=== PATIENT | male | born 1960 | race Caucasian/White ===

== ENCOUNTER 2020-05-04 15:06 | Inpatient (IN) | payer MEDICARE, MEDICAID ==
[~2020-05-04] VITALS: Ht 175.3 cm; Wt 65.8 kg
[2020-05-04 15:48] LABS: BASOPHILS 0.1 % (0-2); EOSINOPHILS 0.1 % (0-7); HEMATOCRIT 31.9 % (42.0-54.0); HEMOGLOBIN 10.4 g/dL (13.5-17.5); IMMATURE GRANULOCYTES 0.3 % (0-5); LYMPHOCYTES 10.7 % (15-50); MCHC 32.6 g/dL (31.0-37.0); MCV 85.8 fL (80.0-100.0); MEAN PLATELET VOLUME 8.9 fL (7.4-10.4); MONOCYTES 7.9 % (2-11); NEUTROPHILS 80.9 % (40-80); PLATELET COUNT 444 10x3/uL (130-400); RBC 3.72 10x6/uL (4.20-6.10); RDW 16.8 % (11.5-14.5); WBC 13.8 10x3/uL (4.8-10.8)
[2020-05-04 16:01] VITALS: BMI 21.4
[2020-05-04 16:32] LABS: ALBUMIN 1.7 g/dL (3.4-5.0); ALKALINE PHOSPHATASE 87 U/L (30-120); ALT (SGPT) 20 U/L (10-68); BILIRUBIN - TOTAL 0.32 mg/dL (0.2-1.3); CALC OSMOLALITY 263 mosm/kg (275-300); CALCIUM 7.6 mg/dL (8.5-10.1); CARBON DIOXIDE 27.9 mmol/L (21.0-32.0); CHLORIDE - SERUM 98 mmol/L (98-107); GLUCOSE 93 mg/dL (74-106); PRO BNP 865 pg/mL (0-125); PROTEIN - SERUM 6.3 g/dL (6.4-8.2); SODIUM 131 mmol/L (136-145); UREA NITROGEN 14 mg/dL (7-18); eGFR NON AFRICAN AMERICAN 82 mL/min (90-120)
[2020-05-04 20:00] VITALS: BP 107/62
[2020-05-05] VITALS: BP 102/45
--- NOTE | 2020-05-05 02:21 | NUR ---
I have reviewed this patient and I concur with the Shift Assessment completed by the Licensed Practical Nurse today this shift.
[2020-05-05 04:00] VITALS: BP 95/50
[2020-05-05 06:34] LABS: BASOPHILS 0 % (0-2); EOSINOPHILS 0.1 % (0-7); HEMATOCRIT 32.6 % (42.0-54.0); HEMOGLOBIN 10.6 g/dL (13.5-17.5); IMMATURE GRANULOCYTES 0.5 % (0-5); MCH 27.8 pg (26.0-34.0); MCHC 32.5 g/dL (31.0-37.0); MCV 85.6 fL (80.0-100.0); MEAN PLATELET VOLUME 9.2 fL (7.4-10.4); MONOCYTES 3.5 % (2-11); NEUTROPHILS 86.9 % (40-80); PLATELET COUNT 485 10x3/uL (130-400); RBC 3.81 10x6/uL (4.20-6.10); WBC 12.3 10x3/uL (4.8-10.8)
[2020-05-05 06:54] LABS: ALBUMIN 1.7 g/dL (3.4-5.0); ALKALINE PHOSPHATASE 83 U/L (30-120); ALT (SGPT) 16 U/L (10-68); BILIRUBIN - TOTAL 0.47 mg/dL (0.2-1.3); CALC OSMOLALITY 268 mosm/kg (275-300); CALCIUM 8.1 mg/dL (8.5-10.1); CARBON DIOXIDE 26.2 mmol/L (21.0-32.0); CHLORIDE - SERUM 100 mmol/L (98-107); CREATININE - SERUM 0.9 mg/dL (0.6-1.3); GLUCOSE 125 mg/dL (74-106); POTASSIUM - SERUM 3.7 mmol/L (3.5-5.1); SODIUM 134 mmol/L (136-145); UREA NITROGEN 12 mg/dL (7-18); eGFR NON AFRICAN AMERICAN > 90 mL/min (90-120)
[2020-05-05 07:06] LABS: APTT 36.2 SECONDS (22.8-39.4); INR 1.15 (0.85-1.17); PROTIME 14.6 SECONDS (11.6-15.0)
[2020-05-05 08:50] VITALS: BP 96/50
[2020-05-05 12:44] VITALS: BP 116/84
[2020-05-05 14:27] VITALS: Ht 175.3 cm; Wt 65.8 kg
[2020-05-05 16:12] LABS: BASOPHILS 0 % (0-2); EOSINOPHILS 0 % (0-7); HEMATOCRIT 31.4 % (42.0-54.0); HEMOGLOBIN 10.3 g/dL (13.5-17.5); IMMATURE GRANULOCYTES 0.3 % (0-5); LYMPHOCYTES 6.6 % (15-50); MCH 27.8 pg (26.0-34.0); MCHC 32.8 g/dL (31.0-37.0); MCV 84.6 fL (80.0-100.0); MEAN PLATELET VOLUME 8.8 fL (7.4-10.4); NEUTROPHILS 89.1 % (40-80); PLATELET COUNT 427 10x3/uL (130-400); RBC 3.71 10x6/uL (4.20-6.10); RDW 16.7 % (11.5-14.5); WBC 11.5 10x3/uL (4.8-10.8)
[2020-05-05 16:22] LABS: APTT 33.8 SECONDS (22.8-39.4); INR 1.06 (0.85-1.17); PROTIME 13.8 SECONDS (11.6-15.0)
[2020-05-05 16:57] VITALS: BP 98/55
[2020-05-05 20:00] VITALS: BP 95/41
--- NOTE | 2020-05-05 20:00 | NUR ---
PT SITTING UP IN BED WITHOUT DISTRESS, AOX4. SIGNIFICANT OTHER AT BEDSIDE. IV RIGHT FA INFUSING NS @ [facility]. SCDS ON. O2 2L/NC. DENIES PAIN OR NEEDS. CL IN REACH, WILL CTM
[2020-05-06] VITALS (12 sets, daily range): BP systolic 80–115; BP diastolic 42–59
[2020-05-06 05:39] LABS: BASOPHILS 0 % (0-2); EOSINOPHILS 0 % (0-7); HEMATOCRIT 30.2 % (42.0-54.0); HEMOGLOBIN 9.8 g/dL (13.5-17.5); IMMATURE GRANULOCYTES 0.4 % (0-5); LYMPHOCYTES 6.7 % (15-50); MCH 27.7 pg (26.0-34.0); MCHC 32.5 g/dL (31.0-37.0); MCV 85.3 fL (80.0-100.0); MEAN PLATELET VOLUME 9.1 fL (7.4-10.4); MONOCYTES 4.1 % (2-11); NEUTROPHILS 88.8 % (40-80); RBC 3.54 10x6/uL (4.20-6.10); RDW 16.8 % (11.5-14.5)
[2020-05-06 05:47] LABS: PLATELET COUNT 517 10x3/uL (130-400); WBC 14.4 10x3/uL (4.8-10.8)
[2020-05-06 05:59] LABS: ALBUMIN 1.6 g/dL (3.4-5.0); ALKALINE PHOSPHATASE 86 U/L (30-120); BILIRUBIN - TOTAL 0.13 mg/dL (0.2-1.3); CALC OSMOLALITY 279 mosm/kg (275-300); CALCIUM 7.9 mg/dL (8.5-10.1); CARBON DIOXIDE 30.1 mmol/L (21.0-32.0); CHLORIDE - SERUM 102 mmol/L (98-107); GLUCOSE 159 mg/dL (74-106); POTASSIUM - SERUM 3.4 mmol/L (3.5-5.1); PROTEIN - SERUM 6.6 g/dL (6.4-8.2); SODIUM 138 mmol/L (136-145); UREA NITROGEN 15 mg/dL (7-18); eGFR NON AFRICAN AMERICAN 82 mL/min (90-120)
[2020-05-06 06:05] LABS: ALT (SGPT) 48 U/L (10-68)
--- NOTE | 2020-05-06 07:48 | NUR ---
PATIENT IN BED SLEEPING. GIRLFRIEND AT BEDSIDE. DENIES NEEDS. BED LOW POSITION, CALL LIGHT IN REACH. WILL CONTINUE TO MONITOR.
--- NOTE | 2020-05-06 11:53 | NUR ---
REPORT RECIEVED FROM RECOVERY ROOM NURSE.
--- NOTE | 2020-05-06 13:18 | MORECARE ---
CASE MANAGEMENT DISCHARGE SUMMARY PATIENT: JUNO HUERTA UNIT: [id number] ADM DATE: 05/04/20 AGE: 59 : 64 SEX: M ROOM/BED: D.2213 AUTHOR: CARLITOS HYATT PHYSICIAN: REFERRING PHYSICIAN: YESSENIA JURADO MD DATE OF SERVICE: 05/06/20 Discharge Plan Patient Name: JUNO HUERTA [facility] [facility] 1960 Planned Disposition: Home Anticipated Discharge Date: Discharge Date: Expected LOS: Initial Reviewer: [id number] Initial Review Date: 05/04/2020 Generated: 05/06/20 2:17 pm DCPIA - Discharge Planning Initial Assessment Updated by [email or web address]: Guerline Tripp on 05/06/20 1:17 pm * Is the patient Alert and Oriented? Yes * How many steps to enter\exit or inside your home? * PCP [facility] IN [place] * Pharmacy [facility] IN [place] * Preadmission Environment Home with Family * ADLs Independent * Equipment None * List name and contact numbers for known caregivers / representatives who currently or will assist patient after discharge: BE SIDDIQUI ( ) [phone] * Verbal permission to speak to the caregivers and representatives has been obtained from the patient. Yes * Community resources currently utilized None * Additional services required to return to the preadmission environment? Yes * Can the patient safely return to the preadmission environment? Yes * Has this patient been hospitalized within the prior 30 days at any hospital? No Patient Name: JUNO HUERTA Page [phone] at 1318 All edits/amendments must be made on the electronic document DICTATION DATE: 05/06/20 1318 GOLF COURSE KEEPER: JOHNNY 05/06/20 1318 RPT#: [id number] DC DATE: STATUS: ADM IN [facility] [address] [place] [address] END OF REPORT
--- NOTE | 2020-05-06 13:27 | MORECARE ---
CASE MANAGEMENT DISCHARGE SUMMARY PATIENT: JUNO HUERTA UNIT: [id number] ADM DATE: 05/04/20 AGE: 59 : 64 SEX: M ROOM/BED: D.2213 AUTHOR: EDMAR,DOC PHYSICIAN: REFERRING PHYSICIAN: YESSENIA JURADO MD DATE OF SERVICE: 05/06/20 Discharge Plan Patient Name: JUNO HUERTA Facility: [facility]:[place] : 1960 Planned Disposition: Home Anticipated Discharge Date: Discharge Date: Expected LOS: Initial Reviewer: [id number] Initial Review Date: 05/04/2020 Generated: 05/06/20 2:27 pm Comments DCP- Discharge Planning Updated by [email or web address]: Guerline Tripp on 05/06/20 12:[address] Patient Name: JUNO HUERTA Admission Status: Elective Accout number: [id number] Admission Date: 05-04-2020 : 1960 Admission Diagnosis: Attending: YESSENIA JURADO Current LOS: 2 Anticipated DC Date: Planned Disposition: Home Primary Insurance: [facility] MEDICARE SOLUTIONS Discharge Planning Comments: CM met with patient to complete initial dc planning assessment. CM educated patient on the CM role and verbal consent given by patient to complete assessment. Patient lives at home with his where he is independent with his care. At discharge patient plans to return home and feels this is a safe discharge. They live in a camper on their daughters property. CM discussed availability of home health, rehab services, and medical equipment. He denies needing or using and DME. He is currently on 4L o2 so he will need a walk test for home o2 need. CARLA for [facility] if he needed home O2. [facility] also served and explained. Patient denied known discharge needs at this time. CM will continue to follow and will assist as needed with dc plans/needs Anesthetist: Guerline Tripp DCPIA - Discharge Planning Initial Assessment Updated by [id number]: Guerline Tripp on 05/06/20 1:17 pm * Is the patient Alert and Oriented? Yes * How many steps to enter\exit or inside your home? * PCP [facility] IN [place] * Pharmacy [facility] IN [place] * Preadmission Environment Home with Family * ADLs Independent * Equipment None * List name and contact numbers for known caregivers / representatives who currently or will assist patient after discharge: BE SIDDIQUI ( ) [phone] * Verbal permission to speak to the caregivers and representatives has been obtained from the patient. Yes * Community resources currently utilized None * Additional services required to return to the preadmission environment? Yes * Can the patient safely return to the preadmission environment? Yes * Has this patient been hospitalized within the prior 30 days at any hospital? No Coverage Notice Reviewer: [id number] Tripp Notice Issued Date-Time: 05/06/2020 12:30 Notice Type: IM Discharge Notice Notice Delivered To: Patient Relationship to Patient: Alarm Technician Name: Delivery Method: HAND - Hand Delivered Kirstin Days: Prior Verbal Notification: Recipient Understood Notice: Yes Recipient Signature: Yes Med Rec Note Co-signed by Attending: Coverage Notice Comment: imm served and explained Reviewer: [id number] Tripp Notice Issued Date-Time: 05/06/2020 12:30 Notice Type: Patient Choice Letter Notice Delivered To: Patient Relationship to Patient: Alarm Technician Name: Delivery Method: HAND - Hand Delivered Kirstin Days: Prior Verbal Notification: Recipient Understood Notice: Yes Recipient Signature: Yes Med Rec Note Co-signed by Attending: Coverage Notice Comment: carla with patrick Fitzpatrick DP export: 05/06/20 12:18 p Patient Name: JUNO HUERTA Page [id number] at 1327 All edits/amendments must be made on the electronic document DICTATION DATE: 05/06/20 1327 CHLORINE CELL TENDER: JOHNNY 05/06/20 1327 RPT#: [id number] DC DATE: STATUS: ADM IN [facility] [address] [place] [address] END OF REPORT
[2020-05-07 04:00] VITALS: BP 105/58
[2020-05-07 05:17] LABS: BASOPHILS 0 % (0-2); EOSINOPHILS 0 % (0-7); HEMATOCRIT 29.4 % (42.0-54.0); HEMOGLOBIN 9.3 g/dL (13.5-17.5); IMMATURE GRANULOCYTES 0.4 % (0-5); MCH 27.5 pg (26.0-34.0); MCHC 31.6 g/dL (31.0-37.0); MEAN PLATELET VOLUME 9.1 fL (7.4-10.4); MONOCYTES 3.4 % (2-11); NEUTROPHILS 90.2 % (40-80); PLATELET COUNT 591 10x3/uL (130-400); RBC 3.38 10x6/uL (4.20-6.10); RDW 17.4 % (11.5-14.5)
[2020-05-07 05:29] LABS: WBC 18.6 10x3/uL (4.8-10.8)
[2020-05-07 05:40] LABS: % SATURATION 39 % (15-55); IRON 52 ug/dl (35-150); TOTAL IRON BIND CAPACITY 131 ug/dl (260-445); UNSAT IRON BIND CAPACITY 79 ug/dl (150-375)
[2020-05-07 06:29] LABS: ALBUMIN 1.6 g/dL (3.4-5.0); ALKALINE PHOSPHATASE 82 U/L (30-120); BILIRUBIN - TOTAL 0.18 mg/dL (0.2-1.3); CARBON DIOXIDE 26.8 mmol/L (21.0-32.0); CHLORIDE - SERUM 105 mmol/L (98-107); GLUCOSE 115 mg/dL (74-106); POTASSIUM - SERUM 3.8 mmol/L (3.5-5.1); PROTEIN - SERUM 6.2 g/dL (6.4-8.2); SODIUM 139 mmol/L (136-145); eGFR NON AFRICAN AMERICAN 82 mL/min (90-120)
[2020-05-07 06:30] LABS: ALT (SGPT) 85 U/L (10-68); CALC OSMOLALITY 280 mosm/kg (275-300); FERRITIN 1279 ng/mL (3-244); UREA NITROGEN 19 mg/dL (7-18)
[2020-05-07 08:51] VITALS: BP 91/43
[2020-05-07 12:36] VITALS: BP 94/56
--- NOTE | 2020-05-07 13:49 | NUR ---
Nutrition follow-up: Pt receiving a regular diet. NPO 05/06 for bronch and lung biopsy Labs reviewed Wt: 145# Will continue to monitor patients po intake and progress. RDN following.
[2020-05-07 16:56] VITALS: BP 105/50
[2020-05-07 17:09] LABS: ACID FAST SMEAR Negative (()); AFB SPECIMEN PROCESSING Concentration (())
--- NOTE | 2020-05-07 17:29 | NUR ---
PATIENT IN BED SLEEPING. FAMILY AT BEDSIDE. AROUSES TO VOICE. DENIES PAIN OR NEEDS. FREE FROM SIGNS OF DISTRESS. BED LOW POSITION. CALL LIGHT IN REACH. WILL CONTINUE TO MONITOR.
[2020-05-07 19:08] LABS: IMMUNOGLOBULIN E 70 IU/mL (6-495)
[2020-05-07 20:16] VITALS: BP 117/63
--- NOTE | 2020-05-07 20:30 | NUR ---
AWAKE,ALERT,NO COMPLAINTS VOICED. RESP EVEN AND UNALBORED. NO DISTRESS NOTED,02 @ 2L PER NC ON. IV TO RFA INTACT WITHOUT REDNESS OR EDEMA NOTED. CL IN REACH. AT BEDSIDE.
[2020-05-08 00:55] VITALS: BP 125/62
--- NOTE | 2020-05-08 04:02 | NUR ---
I have reviewed this patient and I concur with the Shift Assessment completed by the Licensed Practical Nurse today this shift.
[2020-05-08 05:07] VITALS: BP 95/62
[2020-05-08 06:44] LABS: BASOPHILS 0 % (0-2); EOSINOPHILS 0.1 % (0-7); HEMATOCRIT 28.6 % (42.0-54.0); HEMOGLOBIN 8.9 g/dL (13.5-17.5); MCH 27.2 pg (26.0-34.0); MCHC 31.1 g/dL (31.0-37.0); MCV 87.5 fL (80.0-100.0); MEAN PLATELET VOLUME 8.8 fL (7.4-10.4); MONOCYTES 6.8 % (2-11); NEUTROPHILS 78.1 % (40-80); PLATELET COUNT 583 10x3/uL (130-400); RBC 3.27 10x6/uL (4.20-6.10); RDW 17.6 % (11.5-14.5); WBC 16.1 10x3/uL (4.8-10.8)
[2020-05-08 07:10] LABS: ALBUMIN 1.7 g/dL (3.4-5.0); ALKALINE PHOSPHATASE 72 U/L (30-120); BILIRUBIN - TOTAL 0.13 mg/dL (0.2-1.3); CALC OSMOLALITY 281 mosm/kg (275-300); CALCIUM 7.8 mg/dL (8.5-10.1); CARBON DIOXIDE 25.9 mmol/L (21.0-32.0); CHLORIDE - SERUM 108 mmol/L (98-107); CREATININE - SERUM 0.8 mg/dL (0.6-1.3); GLUCOSE 83 mg/dL (74-106); POTASSIUM - SERUM 4.1 mmol/L (3.5-5.1); PROTEIN - SERUM 5.2 g/dL (6.4-8.2); SODIUM 141 mmol/L (136-145); UREA NITROGEN 17 mg/dL (7-18); eGFR NON AFRICAN AMERICAN > 90 mL/min (90-120)
[2020-05-08 07:12] LABS: ALT (SGPT) 63 U/L (10-68)
[2020-05-08 08:12] VITALS: BP 102/42
--- NOTE | 2020-05-08 08:24 | NUR ---
BE IN CHAIR. PT IN BED. NO CO OF PAIN. CL IN REACH. PT SL TO RIGHT FOREARM. WCTM
--- NOTE | 2020-05-08 10:44 | NUR ---
PT AND BE STATED THAT PT WOULD LIKE SOME FRESH AIR SO THEY WERE GOING TO GO OUT THE ER ENTRANCE. I STATED THAT THEY MIGHT NOT ALLOW HIM TO GO OUT BECAUSE OF THE IV POLE. I SHOWED THEM THE COURTYARD INSTEAD. MARY
[2020-05-08 12:16] VITALS: BP 141/63
--- NOTE | 2020-05-08 15:16 | NUR ---
BE IN CHAIR. PT EASILY AWAKENED. LAYING ON RIGHT SIDE. MEDS GIVEN PER EMAR. CL IN REACH. NO FURTHER NEEDS AT THIS TIME. WCTM
[2020-05-08 16:20] VITALS: BP 105/61
[2020-05-08] MEDS ORDERED: NICODERM CQ1 EAC3 TRANSDERM (16:40)
[2020-05-08] MEDS ORDERED: MUCINEX DM ER1 EAC1 PO (16:41)
[2020-05-08] MEDS ORDERED: PROTONIX40 MG PO (16:41)
[2020-05-08] MEDS ORDERED: IPRAT-ALBUT 0.5-3 ML UPD (16:41)
[2020-05-08] MEDS ORDERED: FLORAJEN3 CAPS460 MG PO (16:41)
[2020-05-08] MEDS ORDERED: TESSALON PERLE100 MG PO (16:41)
[2020-05-08] MEDS ORDERED: LEVOFLOXACIN500 MG PO (16:42)
[2020-05-08] MEDS ORDERED: CLINDAMYCIN HC300 MG PO (16:42)
[2020-05-08] MEDS ORDERED: PREDNISONE10 MG PO (16:42)
[2020-05-08] MEDS ORDERED: SYMBICORT 16010.2 GM INH (16:43)
--- NOTE | 2020-05-08 17:15 | NUR ---
CALLED AND LEFT A MESSAGE WITH CASE MANAGEMENT YORDAN AT 1645 NO ANSWER, PATIENT IS NEEDING NEBULIZER UPON DC. TEXTED [facility] AND WAS TOLD SHOULD BE HERE UNTIL 5. STILL NO ANSWER. WILL CONTINUE TO AWAIT ANSWER FROM GEN[facility] AND CONTINUE WITH [facility]
--- NOTE | 2020-05-08 18:03 | NUR ---
PT AMBULATED 250 FT WITH NO 0XYGEN. LOWEST SAT RECORDED AT 90% DURING WALK. PT VERBALIZED UNDERSTANDING THAT IT WOULD BE POSSIBLE TO GET THE NEBULIZER TOMORROW AND OXYGEN IF NEEDED. TONIGHT IT WOULD BE DIFFICULT. PT VERBALIZED HE WANTED TO GO HOME TONIGHT AND STILL GET THE NEBULIZER TOMORROW. I STATED THAT WOULD BE POSSIBLE.
--- NOTE | 2020-05-08 19:10 | NUR ---
DISCHARGE PAPERWORK GIVEN. PT VERBALIZED UNDERSTANDING. WHEELED OUT TO ER EXIT. IV THERAPY DC'ED FROM LEFT FOREARM.
--- NOTE | 2020-05-09 09:17 | MORECARE ---
CASE MANAGEMENT DISCHARGE SUMMARY PATIENT: JUNO HUERTA UNIT: [id number] ADM DATE: 05/04/20 AGE: 59 : 64 SEX: M ROOM/BED: D.2213 AUTHOR: EDMARDOC PHYSICIAN: REFERRING PHYSICIAN: YESSENIA JURADO MD DATE OF SERVICE: 05/09/20 Discharge Plan Patient Name: JUNO HUERTA Facility: [facility]:[place] : 1960 Planned Disposition: Home Anticipated Discharge Date: Discharge Date: 05/08/2020 Expected LOS: Initial Reviewer: [email or web address] Initial Review Date: 05/04/2020 Generated: 05/09/20 10:17 am DCP- Discharge Planning Updated by [email or web address]: Guerline Tripp on 05/06/20 12:[address] Patient Name: JUNO HUERTA Admission Status: Elective Accout number: [id number] Admission Date: 05-04-2020 : 1960 Admission Diagnosis: Attending: YESSENIA JURADO Current LOS: 2 Anticipated DC Date: Planned Disposition: Home Primary Insurance: [facility] MEDICARE SOLUTIONS Discharge Planning Comments: CM met with patient to complete initial dc planning assessment. CM educated patient on the CM role and verbal consent given by patient to complete assessment. Patient lives at home with his where he is independent with his care. At discharge patient plans to return home and feels this is a safe discharge. They live in a camper on their daughters property. CM discussed availability of home health, rehab services, and medical equipment. He denies needing or using and DME. He is currently on 4L o2 so he will need a walk test for home o2 need. CARLA for [facility] if he needed home O2. [facility] also served and explained. Patient denied known discharge needs at this time. CM will continue to follow and will assist as needed with dc plans/needs Plastic Panel Installer: Guerline Tripp DCPIA - Discharge Planning Initial Assessment Updated by [email or web address]: Guerline Tripp on 05/06/20 1:17 pm * Is the patient Alert and Oriented? Yes * How many steps to enter\exit or inside your home? * PCP [facility] IN [place] * Pharmacy [facility] IN [place] * Preadmission Environment Home with Family * ADLs Independent * Equipment None * List name and contact numbers for known caregivers / representatives who currently or will assist patient after discharge: BE SIDDIQUI ( ) [phone] * Verbal permission to speak to the caregivers and representatives has been obtained from the patient. Yes * Community resources currently utilized None * Additional services required to return to the preadmission environment? Yes * Can the patient safely return to the preadmission environment? Yes * Has this patient been hospitalized within the prior 30 days at any hospital? No External Providers External Provider: Chaya Next Contact Date: Service Request Date: Service Type: Resolution: Reviewer: Comments: Coverage Notice Reviewer: [id number] Tripp Notice Issued Date-Time: 05/06/2020 12:30 Notice Type: IM Discharge Notice Notice Delivered To: Patient Relationship to Patient: Hose Builder Name: Delivery Method: HAND - Hand Delivered Kirstin Days: Prior Verbal Notification: Recipient Understood Notice: Yes Recipient Signature: Yes Med Rec Note Co-signed by Attending: Coverage Notice Comment: imm served and explained Reviewer: [id number] Tripp Notice Issued Date-Time: 05/06/2020 12:30 Notice Type: Patient Choice Letter Notice Delivered To: Patient Relationship to Patient: Hose Builder Name: Delivery Method: HAND - Hand Delivered Kirstin Days: Prior Verbal Notification: Recipient Understood Notice: Yes Recipient Signature: Yes Med Rec Note Co-signed by Attending: Coverage Notice Comment: carla with patrick Fitzpatrick DP export: 05/06/20 12:27 p Patient Name: JUNO HUERTA Page [phone] at 0917 All edits/amendments must be made on the electronic document DICTATION DATE: 05/09/20916 INTERNAL COMMUNICATIONS WRITER: JOHNNY 05/09/20916 RPT#: [id number] DC DATE:05/08/20 STATUS: DIS IN [facility] [address] [place] [address] END OF REPORT
--- NOTE | 2020-05-09 09:42 | MORECARE ---
CASE MANAGEMENT DISCHARGE SUMMARY PATIENT: JUNO HUERTA UNIT: [id number] ADM DATE: 05/04/20 AGE: 59 : 64 SEX: M ROOM/BED: D.2213 AUTHOR: CARLITOS HYATT PHYSICIAN: REFERRING PHYSICIAN: YESSENIA JURADO MD DATE OF SERVICE: 05/09/20 Discharge Plan Patient Name: JUNO HUERTA Facility: [facility]:[place] : 1960 Planned Disposition: Home Anticipated Discharge Date: Discharge Date: 05/08/2020 Expected LOS: Initial Reviewer: [email or web address] Initial Review Date: 05/04/2020 Generated: 05/09/20 10:41 am Comments DCP- Discharge Planning Updated by [email or web address]: Marianne Carter on 05/09/20 8:[address] Patient Name: JUNO HUERTA Encounter No: [id number] : 1960 Primary Insurance: [facility] MEDICARE SOLUTIONS Anticipated DC Date: Planned Disposition: Home External Planned Provider: : DCP follow-up note: CM was asked by Dolly SHEN to set up home and portable oxygen. The pt was dc after CM hours. CM called pt Ruthie at [phone] about oxygen and nebulizers. Ruthie states she is in agreement to have [facility] service DME needs. CM called Sunny at [phone] for referral and faxed clinicals. Pt physical address is [address] [place], [place] [address] in [facility]. Ruthie states she was not able to get her husbands medications filled. She states the pharmacy told her it was too soon. [facility] called [facility] on [address] and spoke to Kris who states the medication was called in to the pharmacy on [facility], and in [facility], GENET called Ruthie to relay the information. Ruthie states she will pick remover the medication today. Patient and family in agreement with discharge plan. No changes to plan. Case management will follow and assist as needed. Marianne Carter DCP- Discharge Planning Updated by [email or web address]: Guerline Tripp on 05/06/20 12:[address] Patient Name: JUNO HUERTA Admission Status: Elective Accout number: [id number] Admission Date: 05-04-2020 : 1960 Admission Diagnosis: Attending: YESSENIA JURADO Current LOS: 2 Anticipated DC Date: Planned Disposition: Home Primary Insurance: [facility] MEDICARE SOLUTIONS Discharge Planning Comments: CM met with patient to complete initial dc planning assessment. CM educated patient on the CM role and verbal consent given by patient to complete assessment. Patient lives at home with his where he is independent with his care. At discharge patient plans to return home and feels this is a safe discharge. They live in a camper on their daughters property. CM discussed availability of home health, rehab services, and medical equipment. He denies needing or using and DME. He is currently on 4L o2 so he will need a walk test for home o2 need. MERE for [facility] if he needed home O2. IMM also served and explained. Patient denied known discharge needs at this time. CM will continue to follow and will assist as needed with dc plans/needs Electromechanical Inspector: Guerline Tripp DCPIA - Discharge Planning Initial Assessment Updated by [id number]: Guerline Tripp on 05/06/20 1:17 pm * Is the patient Alert and Oriented? Yes * How many steps to enter\exit or inside your home? * PCP [facility] IN [place] * Pharmacy [facility] IN [place] * Preadmission Environment Home with Family * ADLs Independent * Equipment None * List name and contact numbers for known caregivers / representatives who currently or will assist patient after discharge: RUTHIE SIDDIQUI ( ) [phone] * Verbal permission to speak to the caregivers and representatives has been obtained from the patient. Yes * Community resources currently utilized None * Additional services required to return to the preadmission environment? Yes * Can the patient safely return to the preadmission environment? Yes * Has this patient been hospitalized within the prior 30 days at any hospital? No Coverage Notice Reviewer: [email or web address] Naina Tripp Notice Issued Date-Time: 05/06/2020 12:30 Notice Type: IM Discharge Notice Notice Delivered To: Patient Relationship to Patient: Antisqueak Worker Name: Delivery Method: HAND - Hand Delivered Kirstin Days: Prior Verbal Notification: Recipient Understood Notice: Yes Recipient Signature: Yes Med Rec Note Co-signed by Attending: Coverage Notice Comment: imm served and explained Reviewer: [id number] Naina Tripp Notice Issued Date-Time: 05/06/2020 12:30 Notice Type: Patient Choice Letter Notice Delivered To: Patient Relationship to Patient: Antisqueak Worker Name: Delivery Method: HAND - Hand Delivered Kirstin Days: Prior Verbal Notification: Recipient Understood Notice: Yes Recipient Signature: Yes Med Rec Note Co-signed by Attending: Coverage Notice Comment: mere with patrick Fitzpatrick DP export: 05/09/20 8:18 a Patient Name: JUNO HUERTA Page [phone] at 0942 All edits/amendments must be made on the electronic document DICTATION DATE: 05/09/20940 BEREAVEMENT PROGRAM COORDINATOR: JOHNNY 05/09/20940 RPT#: [id number] DC DATE:05/08/20 STATUS: DIS IN [facility] [address] [place] [address] END OF REPORT
--- NOTE | 2020-05-10 09:05 | MORECARE ---
CASE MANAGEMENT DISCHARGE SUMMARY PATIENT: JUNO HUERTA UNIT: [id number] ADM DATE: 05/04/20 AGE: 59 : 64 SEX: M ROOM/BED: D.2213 AUTHOR: CARLITOS HYATT PHYSICIAN: REFERRING PHYSICIAN: YESSENIA JURADO MD DATE OF SERVICE: 05/10/20 Discharge Plan Patient Name: JUNO HUERTA Facility: [facility]:[place] : 1960 Planned Disposition: Home Anticipated Discharge Date: Discharge Date: 05/08/2020 Expected LOS: Initial Reviewer: [email or web address] Initial Review Date: 05/04/2020 Generated: 05/10/20 10:05 am Comments DCP- Discharge Planning Updated by [email or web address]: Marianne Carter on 05/09/20 8:[address] Patient Name: JUNO HUERTA Encounter No: [id number] : 1960 Primary Insurance: [facility] MEDICARE SOLUTIONS Anticipated DC Date: Planned Disposition: Home External Planned Provider: : DCP follow-up note: GENET was asked by Dolly SHEN to set up home and portable oxygen. The pt was dc after CM hours. CM called pt Ruthie at [phone] about oxygen and nebulizers. Ruthie states she is in agreement to have [facility] service DME needs. CM called Sunny at [phone] for referral and faxed clinicals. Pt physical address is [address] [place], [place] [address] in [facility]. Ruthie states she was not able to get her husbands medications filled. She states the pharmacy told her it was too soon. [facility] called [facility] on [address] and spoke to Kris who states the medication was called in to the pharmacy on [facility], and in [facility], GENET called Ruthie to relay the information. Ruthie states she will black pickler the medication today. Patient and family in agreement with discharge plan. No changes to plan. Case management will follow and assist as needed. Marianne Carter DCP- Discharge Planning Updated by [email or web address]: Guerline Tripp on 05/06/20 12:[address] Patient Name: JUNO HUERTA Admission Status: Elective Accout number: [id number] Admission Date: 05-04-2020 : 1960 Admission Diagnosis: Attending: YESSENIA JURADO Current LOS: 2 Anticipated DC Date: Planned Disposition: Home Primary Insurance: [facility] MEDICARE SOLUTIONS Discharge Planning Comments: CM met with patient to complete initial dc planning assessment. CM educated patient on the CM role and verbal consent given by patient to complete assessment. Patient lives at home with his where he is independent with his care. At discharge patient plans to return home and feels this is a safe discharge. They live in a camper on their daughters property. CM discussed availability of home health, rehab services, and medical equipment. He denies needing or using and DME. He is currently on 4L o2 so he will need a walk test for home o2 need. MERE for [facility] if he needed home O2. IMM also served and explained. Patient denied known discharge needs at this time. CM will continue to follow and will assist as needed with dc plans/needs Sterile Proc Tech: Guerline Tripp DCPIA - Discharge Planning Initial Assessment Updated by [email or web address]: Guerline Tripp on 05/06/20 1:17 pm * Is the patient Alert and Oriented? Yes * How many steps to enter\exit or inside your home? * PCP [facility] IN [place] * Pharmacy [facility] IN [place] * Preadmission Environment Home with Family * ADLs Independent * Equipment None * List name and contact numbers for known caregivers / representatives who currently or will assist patient after discharge: RUTHIE SIDDIQUI ( ) [phone] * Verbal permission to speak to the caregivers and representatives has been obtained from the patient. Yes * Community resources currently utilized None * Additional services required to return to the preadmission environment? Yes * Can the patient safely return to the preadmission environment? Yes * Has this patient been hospitalized within the prior 30 days at any hospital? No Coverage Notice Reviewer: [id number] Naina Tripp Notice Issued Date-Time: 05/06/2020 12:30 Notice Type: IM Discharge Notice Notice Delivered To: Patient Relationship to Patient: Window Assembler Name: Delivery Method: HAND - Hand Delivered Kirstin Days: Prior Verbal Notification: Recipient Understood Notice: Yes Recipient Signature: Yes Med Rec Note Co-signed by Attending: Coverage Notice Comment: imm served and explained Reviewer: [id number] Naina Tripp Notice Issued Date-Time: 05/06/2020 12:30 Notice Type: Patient Choice Letter Notice Delivered To: Patient Relationship to Patient: Window Assembler Name: Delivery Method: HAND - Hand Delivered Kirstin Days: Prior Verbal Notification: Recipient Understood Notice: Yes Recipient Signature: Yes Med Rec Note Co-signed by Attending: Coverage Notice Comment: mere with patrick Fitzpatrick DP export: 05/09/20 8:42 a Patient Name: JUNO HUERTA Page [phone] at 0905 All edits/amendments must be made on the electronic document DICTATION DATE: 05/10/20904 RECORD PRESS SUPERVISOR: JOHNNY 05/10/20904 RPT#: [id number] DC DATE:05/08/20 STATUS: DIS IN [facility] [address] [place] [address] END OF REPORT
== END 2020-05-08 19:24 | disposition home or self-care (01) | DRG 180 ==
LOC: D.MS 15:06
PROVIDERS: Internal Medicine Pulmonary Disease; ADMIT Emergency Medicine; ATTEND Emergency Medicine
PROC: 0BB78ZX Excision of Left Main Bronchus, Via Natural or Artificial Opening Endoscopic, Diagnostic (ICD-10-PCS; 2020-05-06)
PROC: 0BB98ZX Excision of Lingula Bronchus, Via Natural or Artificial Opening Endoscopic, Diagnostic (ICD-10-PCS; principal; 2020-05-06 10:15)
DX: C34.12 Malignant neoplasm of upper lobe, left bronchus or lung (principal); J18.9 Pneumonia, unspecified organism; J96.01 Acute respiratory failure with hypoxia; F17.203 Nicotine dependence unspecified, with withdrawal; J44.1 Chronic obstructive pulmonary disease with (acute) exacerbation; E87.1 Hypo-osmolality and hyponatremia; R50.9 Fever, unspecified; K59.00 Constipation, unspecified; I25.10 Atherosclerotic heart disease of native coronary artery without angina pectoris; D64.9 Anemia, unspecified; E78.5 Hyperlipidemia, unspecified

== ENCOUNTER → 2020-05-28 10:12 | Outpatient (CLI) | payer MEDICARE, MEDICAID ==
[2020-05-05 14:27] VITALS: BMI 21.4
[~2020-05-28 10:12] MED LIST: CLINDAMYCIN HC300 MG PO; FLORAJEN3 CAPS460 MG PO; IPRAT-ALBUT 0.5-3 ML UPD; LEVOFLOXACIN500 MG PO; MUCINEX DM ER1 EAC1 PO; NICODERM CQ1 EAC3 TRANSDERM; PREDNISONE10 MG PO; PROTONIX40 MG PO; SYMBICORT 16010.2 GM INH; TESSALON PERLE100 MG PO
== END | disposition home or self-care (01) ==
LOC: D.MRI 10:00
PROVIDERS: ATTEND Internal Medicine Hematology & Oncology
DX: C34.12 Malignant neoplasm of upper lobe, left bronchus or lung (principal)

== ENCOUNTER 2020-06-03 07:21 | Day surgery (SDC) | payer MEDICARE, MEDICAID ==
[~2020-06-03] VITALS: Ht 175.3 cm; Wt 65.8 kg
--- NOTE | ~2020-06-03 | OP ---
PATIENT NAME: JUNO HUERTA MEDICAL RECORD: [id number] :64 LOCATION:D.OPS ADMISSION DATE: SURGEON: CHRISTOPHER BHAKTA MD DATE OF OPERATION: 06/03/2020 PREOPERATIVE DIAGNOSES: 1. Stage IV lung cancer. 2. Coronary artery disease. POSTOPERATIVE DIAGNOSES: 1. Stage IV lung cancer. 2. Coronary artery disease. PROCEDURE: 1. Left subclavian vein 8-[place]hut[place] PowerPort placement. 2. Fluoroscopic interpretation. SURGEON: Christopher Bhakta MD REPORT OF PROCEDURE: The patient's left chest was prepped and draped in sterile fashion. A needle was used to cannulate the left subclavian vein and a guidewire was advanced with ease. Fluoro was used to note that the wire was in good position in the venous system. A skin incision was made on the left superior lateral chest and a subcutaneous pouch was made over the pectoral fascia. The catheter was tunneled between this pouch and the wire exit site. The port was sutured to the pectoral fascia with interrupted 2-0 Prolenes times 2. The catheter was cut with a beveled tip at 20 cm. The dilator trocar device was placed over the wire and the wire and dilator were removed. The catheter tip was advanced through the trocar, which was then removed. The catheter tip was noted to be resting in good position at the right atrial superior vena caval junction. The catheter aspirated nonpulsatile dark blood and flushed easily with heparinized saline. The subcutaneous tissues were then reapproximated with interrupted 3-0 Vicryl and the skin was closed with running subcutaneous 5-0 Monocryl. COMPLICATIONS: None. CONDITION: Stable. ANESTHESIA: General endotracheal. BLOOD LOSS: Minimal. TRANSINT:[id number] Voice Confirmation ID: [id number] DOCUMENT ID: [id number] CHRISTOPHER BHAKTA MD CC: MIGUEL CHENG MD [id number] DICTATION DATE: 06/03/20 0948 CABINET WORKER: 06/03/20 1210 [facility] [address] [id number]
[2020-06-03 07:46] LABS: APTT 32.7 SECONDS (22.8-39.4); INR 1.04 (0.85-1.17); PROTIME 13.5 SECONDS (11.6-15.0)
[2020-06-03 07:48] LABS: BASOPHILS 0.4 % (0-2); HEMOGLOBIN 11.1 g/dL (13.5-17.5); IMMATURE GRANULOCYTES 0.3 % (0-5); LYMPHOCYTES 27.1 % (15-50); MCH 27.9 pg (26.0-34.0); MCHC 31.7 g/dL (31.0-37.0); MCV 87.9 fL (80.0-100.0); MEAN PLATELET VOLUME 8.8 fL (7.4-10.4); MONOCYTES 8.4 % (2-11); NEUTROPHILS 50.8 % (40-80); RBC 3.98 10x6/uL (4.20-6.10); RDW 17.7 % (11.5-14.5); WBC 12.3 10x3/uL (4.8-10.8)
[2020-06-03 07:49] LABS: PLATELET COUNT 346 10x3/uL (130-400)
[2020-06-03 08:00] LABS: CALC OSMOLALITY 278 mosm/kg (275-300); CALCIUM 9.6 mg/dL (8.5-10.1); CARBON DIOXIDE 29.5 mmol/L (21.0-32.0); CHLORIDE - SERUM 99 mmol/L (98-107); CREATININE - SERUM 0.9 mg/dL (0.6-1.3); GLUCOSE 113 mg/dL (74-106); POTASSIUM - SERUM 3.3 mmol/L (3.5-5.1); SODIUM 137 mmol/L (136-145); UREA NITROGEN 23 mg/dL (7-18); eGFR NON AFRICAN AMERICAN > 90 mL/min (90-120)
[2020-06-03] MEDS ORDERED: ZOFRAN4 MG PO (08:15)
[2020-06-03] MEDS ORDERED: TYLENOL W/CODEI1 TAB PO (08:15)
[2020-06-03 08:16] VITALS: BP 108/74; Ht 175.3 cm; Wt 65.8 kg
[2020-06-03] MEDS ORDERED: HYDROCODON-ACE1 EAC7 PO (09:46)
--- NOTE | 2020-06-03 12:09 | NUR ---
1125 IV D/C'D WITH CANNULA INTACT, PRESSURE HELD AND DRSG PLACED. DISCHARGE INSTRUCIONS GIVEN AND PT VERBALIZED AN UNDERSTANDING. DRSG CDI AND OPERATIVE SITE WITHOUT COMPLICATIONS. DISCHARGED HOME IN STABLE CONDITION AND WITHOUT C/O
== END 2020-06-03 11:30 | disposition home or self-care (01) ==
LOC: D.OPS 07:21
PROVIDERS: Anesthesiology; ATTEND Surgery
DX: C34.12 Malignant neoplasm of upper lobe, left bronchus or lung (principal); I25.10 Atherosclerotic heart disease of native coronary artery without angina pectoris

== ENCOUNTER → 2020-06-07 10:34 | Outpatient (CLI) | payer MEDICARE, MEDICAID ==
[2020-06-03 08:16] VITALS: BMI 21.4
--- NOTE | ~2020-06-07 | HEMODYNAMI ---
PATIENT:JUNO HUERTA MEDICAL RECORD: [id number] : 64 [id number] ADMISSION DATE: 06/07/20 Generatedon:06/07/202011:20 Patient name: JUNO HUERTA Patient #: [id number] SSN: : 1960 Date of study: 06/07/2020 Page: Of Hemodynamic Procedure Report Patient Data Patient Demographics Procedure consent was obtained First Name: JUNO Gender: Male Last Name: BRADLEY : 1960 Middle Initial: W Age: 59 year(s) Patient #: [id number] Race: Unknown Additional ID: [id number] Contact details Address: [place] [address] State: [place] City: [place] Zip code: [address] Admission Admission Data Admission Date: 06/07/2020 Admission Time: 10:34 Procedure Procedure Types Cath Procedure Peripheral Cath Diagnostic Procedure Miscellaneous Cathetergram Procedure Description Procedure Date Procedure Date: 06/07/2020 Procedure Start Time: 11:13 Procedure Staff Name Function Swetha Mason MD Performing Physician Salvador JUSTIN Scrub Procedure Data Cath Procedure Fluoroscopy Diagnostic fluoroscopy Total fluoroscopy Time: 0.1 time: 0.1 min min Diagnostic fluoroscopy Total fluoroscopy dose: 1 dose: 1 mGy mGy Hemodynamics Rest Pre Cath Intra NCS Post Cath Procedure Log Time Note 10:54:45 Salvador Membreno RT (R) (CV) sent for patient. Start room use. 10:54:52 Patient received from Other to IR Alert and oriented. Tansferred to table in Supine position. 10:55:02 Signed procedure consent form obtained from patient. 10:55:04 Correct patient and procedure confirmed by team. 10:55:05 Pre-procedure instructions explained to patient. 10:55:06 Pre-op teaching completed and patient verbalized understanding. 10:55:16 [place] TO [place] 10:55:24 Is patient on blood thinner?No 11:13:35 Physician arrived 11:13:36 --------ALL STOP TIME OUT------ 11:13:37 Final Timeout: patient, procedure, and site verified with staff and physician. All members of the team are in agreement. 11:13:53 Procedure started. 11:13:53 Full Disclosure recording started 11:18:25 Procedure ended.(Physican Out) 11:18:51 Fluoroscopy dose: 1 mGy 11:18:51 Flurop Dose total: 1 11:19:06 Fluoroscopy time 00.10 minutes. 11:19:16 PT SENT HOME Signature Audit [place] Stage Time Signature Unsigned Intra-Procedure 06/07/2020 Salvador 11:19:50 AM Haseeb RT (R) (CV) [facility] [address] [place] [address]
[~2020-06-07 10:34] MED LIST changes: +HYDROCODON-ACE1 EAC7 PO; +TYLENOL W/CODEI1 TAB PO; +ZOFRAN4 MG PO
== END | disposition home or self-care (01) ==
LOC: D.RAD 10:00
PROVIDERS: ATTEND Internal Medicine Hematology & Oncology
DX: C34.12 Malignant neoplasm of upper lobe, left bronchus or lung (principal)